=== PATIENT | female | born 1955 | race Caucasian/White ===

== ENCOUNTER 2018-11-29 16:52 | Observation (INO) ==
[2018-11-29] MEDS ORDERED: MORPHINE 4 MG/1 ML VIAL IV PRN (18:43)
[2018-11-29] MEDS ORDERED: POTASSIUM CHLORIDE 20 MEQ TABLET PO PRN ×2 (18:43)
[2018-11-29] MEDS ORDERED: MAGNESIUM SULF RIDER 2 GM in PREMIX 1 EACH IV PRN (18:43)
[2018-11-29] MEDS ORDERED: ACETAMINOPHEN 325 MG TABLET PO PRN (18:43)
[2018-11-29] MEDS ORDERED: NICOTINE 21 MG/24 HR PATCH TRANSDERM PRN (18:43)
[2018-11-29] MEDS ORDERED: MAGNESIUM SULF RIDER 4 GM in PREMIX 1 EACH IV PRN (18:43)
[2018-11-29] MEDS ORDERED: NITROGLYCERIN SL 0.4 MG TABLET SL PRN (18:43)
[2018-11-29] MEDS ORDERED: ONDANSETRON 4 MG/2 ML VIAL IV PRN (18:43)
[2018-11-29] MEDS ORDERED: ZALEPLON 5 MG CAPSULE PO PRN (18:43)
[2018-11-29] MEDS ORDERED: PROMETHAZINE 25 MG TABLET PO PRN (18:43)
[2018-11-29] MEDS ORDERED: diphenhydrAMINE CAP 25 MG CAPSULE PO PRN (18:43)
[2018-11-29] MEDS ORDERED: ALUM/MAG/SIMETH/LIDO VISC 1:1 30 ML BOTTLE PO PRN (18:43)
[2018-11-29] MEDS ORDERED: hydrALAZINE 20 MG/1 ML VIAL IV PRN (18:50)
[2018-11-29] MEDS ORDERED: busPIRone 5 MG TABLET PO PRN (18:57)
[2018-11-29] MEDS ORDERED: ATORVASTATIN 40 MG TABLET PO SCH (21:00)
[2018-11-29] MEDS ORDERED: METOPROLOL TARTRATE 25 MG TABLET PO SCH ×2 (21:00)
[2018-11-29] MEDS: DOCUSATE SODIUM 100 MG CAPSULE PO SCH (22:00)
[2018-11-29] MEDS: CARVEDILOL 6.25 MG TABLET PO SCH (22:00)
[2018-11-29] MEDS: HEPARIN 5,000 UNIT/1 ML VIAL SUBCUT SCH (22:02)
[2018-11-29 23:25] LABS: Apearance,Urine CLEAR (Clear); Bilirubin,Urine Negative (Negative); Blood, Urine Negative (Negative); Glucose,Urine (UA) Negative (Negative); Ketones,Urine Negative (Negative); Nitrite,Urine Negative (Negative); Protein,Urine Negative; RBC,Urine 2 /HPF (0-4); Squamous Epithelial Cell,Urine Occasional /HPF (0-10); Urine Color Yellow (Yellow); Urine Specific Gravity > 1.060 (1.001-1.035); Urine Urobilinogen < 2.0 EU/DL (0.2-1.0); WBC,Urine 1 /HPF (0-6)
[2018-11-30 01:21] LABS: Basophils # 0.1 10*3/uL (0.0-0.2); Basophils % 0.5 % (0.0-0.8); Eosinophils # 0.1 10*3/uL (0.0-0.87); Eosinophils % 1.1 % (0.00-10.9); Hematocrit 38.7 VOL% (35.7-47.0); Hemoglobin 12.3 GM/DL (12.0-16.0); Immature Granulocytes % 0.7 %; Immature Granulocytes Absolute 0.07 #; Lymphocytes # 3.6 10*3/uL (1.4-4.0); Lymphocytes % 35.8 % (21.3-54.2); Mean Corpuscular HGB Conc 31.8 GM/DL (32-36); Mean Corpuscular Hemoglobin 28 PG (27-34); Mean Corpuscular Volume 89.2 FL (87-102); Mean Platelet Volume 12.3 FL (9.6-12.0); Monocytes # 0.5 10*3/uL (0.11-0.8); Monocytes % 5.2 % (1.7-12.7); Neutrophils # 5.7 10*3/uL (1.4-7.4); Neutrophils % 56.7 % (38.7-73.9); Platelet Count 173 T/CUMM (130-400); Red Blood Count 4.34 MC/CUMM (3.8-5.5)
[2018-11-30 01:28] LABS: Albumin 3.3 G/DL (3.4-5.0); Bilirubin,Total 0.7 MG/DL (0.2-1.0); Calcium 8.2 MG/DL (8.5-10.1); Osmolality,Calculated 281.4 MOS/KG (273-304); Potassium 3.6 MMOL/L (3.5-5.1); Risk Ratio 5.23; Thyroid Stimulating Hormone 8.81 uIU/ml (0.358-3.74); Total Protein 5.9 G/DL (6.4-8.3)
[2018-11-30] MEDS: HEPARIN 5,000 UNIT/1 ML VIAL SUBCUT SCH ×2 (05:26→13:41)
[2018-11-30 07:46] VITALS: BP 132/66
[2018-11-30] MEDS ORDERED: LEVOTHYROXINE 25 MCG TABLET PO SCH (08:47)
[2018-11-30] MEDS ORDERED: ASPIRIN EC 81 MG TABLET PO SCH (09:00)
[2018-11-30] MEDS ORDERED: PANTOPRAZOLE 40 MG TABLET PO SCH (09:00)
[2018-11-30] MEDS ORDERED: LOSARTAN 25 MG TABLET PO SCH (09:00)
[2018-11-30] MEDS ORDERED: FUROSEMIDE 40 MG/4 ML VIAL IV SCH (09:00)
[2018-11-30] MEDS: DOCUSATE SODIUM 100 MG CAPSULE PO SCH (10:40)
[2018-11-30] MEDS: CARVEDILOL 6.25 MG TABLET PO SCH (10:41)
== END 2018-11-30 14:00 | disposition home or self-care (01) ==
LOC: N.TELEN → SUATTDRO 17:56
PROVIDERS: ADMIT Internal Medicine; ATTEND Internal Medicine